=== PATIENT | male | born 1975 | race Asian ===

== ENCOUNTER 2024-08-25 09:32 | Day surgery (SDC) | payer OTHER ==
[~2024-08-25] VITALS: Ht 160 cm; Wt 63.5 kg
--- NOTE | ~2024-08-25 | OR ---
[facility] [address] [facility], [place] [address] Draft DATE OF OPERATION: 08/25/2024 SURGEON: Pedrito Herman MD PREOPERATIVE DIAGNOSIS: Colon screening. POSTOPERATIVE DIAGNOSIS: Sigmoid diverticulosis. PROCEDURE: Total colonoscopy to cecum. ANESTHESIA: Intravenous sedation; fentanyl 150 mcg, Versed 6 mg. INDICATION: This 49-year-old Bengali [place] man is a patient of LALA Kent. He is referred for screening colonoscopy. He has had no colon evaluation in the past. He has no symptoms of bleeding, diarrhea, or constipation and no known family history of colon cancer. He is admitted to undergo colonoscopy. He understands the risk of bleeding, infection, and perforation. FINDINGS: The prep was adequate, though there are some small bits of solid stool here and there. Irrigation allowed for good evaluation of the colon throughout. There were diverticula in small amounts. Retroflexed view confirmed minimal hemorrhoidal change. There were no polyps and no sign of colitis or cancer. DESCRIPTION OF PROCEDURE: The patient was brought to the endoscopy suite and placed in the lateral decubitus position, given intravenous sedation to the point of slurred speech and nystagmus. Digital rectal examination was normal. An Olympus video colonoscope was passed in the rectum and manipulated throughout the colon noting a few diverticula of the sigmoid and left colon. The scope was ultimately advanced to the cecum. The ileocecal valve and appendiceal orifice were normal. Irrigation was undertaken as needed and the scope was carefully withdrawn. Examination throughout showed no sign of polyps or colitis, only a few scattered diverticula dominantly in the left colon. Retroflexed view of the rectum showed minimal PATIENT NAME: PADMINI GRANT OPERATIVE REPORT DATE OF : 75 REPORT #: [id number] PHYSICIAN: PEDRITO HERMAN MD PCP: COLLETTE ENCARNACION REPORT IS CONFIDENTIAL AND NOT TO BE RELEASED WITHOUT AUTHORIZATION [facility] [address] [place] [id number] Draft hemorrhoidal change. The scope was removed and the patient was taken to the recovery room in good condition. CONCLUDING DIAGNOSES: Minimal diverticula and internal hemorrhoids. PLAN: Recommend high-fiber diet. Recommend repeat colonoscopy in 10 years, sooner if clinically indicated. He will return to the ongoing care of LALA Kent. MD BRANNON Ortiz/HUGO /[id number] cc: Collette Encarnacion PA-C Copies: COLLETTE ENCARNACION ~ PATIENT NAME: PADMINI GRANT OPERATIVE REPORT DATE OF : 75 REPORT #: [id number] PHYSICIAN: PEDRITO HERMAN MD PCP: COLLETTE ENCARNACION PAC REPORT IS CONFIDENTIAL AND NOT TO BE RELEASED WITHOUT AUTHORIZATION
[~2024-08-25 09:32] MED LIST: CYCLOBENZAPRINE5 MG PO; IBLOOD GLUCOSE TEST STRIP 1 EA TEST VI PRN; LACTATED RINGER'S 1,000 ML IV SCH; LIDOCAINE HCL 1% 5 ML SDV INJ ONE; METFORMIN HCL500 MG PO; MIDAZOLAM HCL 5 MG/5 ML VIAL IV PRN; VITAMIN D21250 MCG PO; ZOCOR20 MG PO; fentaNYL citrate 100 MCG/2 ML VIAL IV PRN
[2024-08-25 09:44] VITALS: BP 141/90
[2024-08-25] MEDS ORDERED: fentaNYL citrate 100 MCG/2 ML VIAL ONE (11:18)
[2024-08-25] MEDS ORDERED: MIDAZOLAM HCL 5 MG/5 ML VIAL ONE (11:18)
--- NOTE | 2024-08-25 12:02 | NUR ---
08/25/24 1202 Sheets,Jacqueline 1150 PT ARRIVED TO PACU ON 1L VIA NC AND PT WAKES TO TACTILE STIMULI. PT EASILY FALLS BACK TO SLEEP. VSS. 1157 AT BEDSIDE TALKING TO PT AND ALL QUESTIONS ANSWERED.
[2024-08-25 12:18] VITALS: BP 126/96
== END 2024-08-25 12:25 | disposition home or self-care (01) ==
LOC: DS 09:32
PROVIDERS: ATTEND Surgery
PROC: 0DJD8ZZ Inspection of Lower Intestinal Tract, Via Natural or Artificial Opening Endoscopic (ICD-10-PCS; principal; 2024-08-25 12:30)
DX: Z12.11 Encounter for screening for malignant neoplasm of colon (principal); K57.30 Diverticulosis of large intestine without perforation or abscess without bleeding; K64.9 Unspecified hemorrhoids; E11.9 Type 2 diabetes mellitus without complications; E78.5 Hyperlipidemia, unspecified; Z79.84 Long term (current) use of oral hypoglycemic drugs
CPT/HCPCS: G0500; J2250; J3010; J7121